=== PATIENT | female | born 1975 | race Two or more races ===

== ENCOUNTER 2024-08-22 12:29 | Emergency (ER) | payer OTHER ==
[~2024-08-22] VITALS: Ht 172.7 cm; Wt 66.2 kg
[2024-08-22] MEDS ORDERED: 0.9 % SODIUM CHLORIDE 1,000 ML IV STA ×3 (12:59→17:55)
[2024-08-22] MEDS ORDERED: ONDANSETRON HCL 2 MG/ML VIAL IV ONE (13:00)
[2024-08-22] MEDS ORDERED: MORPHINE SULFATE 4 MG/ML VIAL IV ONE ×2 (13:00→16:30)
[2024-08-22 13:46] LABS: HEMATOCRIT 39.8 % (36.0-45.00); MEAN CORPUSCULAR HEMOGLOBIN 26.4 pg (27.00-32.0); MEAN CORPUSCULAR HGB CONC 32.6 g/dl (32.0-36.0); PLATELET COUNT 262 K/uL (150-450); RED BLOOD COUNT 4.91 M/uL (4.00-6.00); RED CELL DISTRIBUTION WIDTH 14.1 % (11.5-14.5)
[2024-08-22 13:53] LABS: INR 0.96; PARTIAL THROMBOPLASTIN TIME 25.5 SECONDS (22.0-34.0); PROTHROMBIN TIME 10.5 SECONDS (9.0-11.5)
[2024-08-22 13:59] LABS: ALBUMIN 3.7 gm/dL (3.4-5.0); BILIRUBIN TOTAL 0.35 mg/dL (0.3-1.2); CALCIUM 9.2 mg/dL (8.5-10.1); CREATININE SERUM 0.68 mg/dL (0.55-1.02); GFR 92.74; GLOBULINA 3.4 G/DL (2.4-3.5); POTASSIUM 3.71 mEq/L (3.5-5.1); TOTAL PROTEIN 7.1 gm/dL (6.4-8.2)
[2024-08-22] MEDS ORDERED: KETOROLAC TROMETHAMINE 30 MG VIAL IV ONE (14:00)
[2024-08-22] MEDS ORDERED: FAMOTIDINE/PF 20 MG/2 ML VIAL IV PUSH ONE (14:00)
[2024-08-22] MEDS ORDERED: TAMSULOSIN HCL 0.4 MG CAP PO ONE (14:00)
[2024-08-22] MEDS ORDERED: PROMETHAZINE HCL 25 MG/ML AMPUL IM ONE (18:00)
[2024-08-22] MEDS ORDERED: MEPERIDINE HCL/PF 50 MG/ML VIAL IM ONE (18:00)
[2024-08-22 18:06] LABS: PH,URINE 5.5 (5.0-8.0); URINE APPEARANCE Clear; URINE BILIRRUBIN Negative (NEGATIVE); URINE BLOOD Negative; URINE COLOR Yellow; URINE GLUCOSE Negative (NEGATIVE); URINE LEUKOCYTE Negative; URINE NITRATE Negative; URINE PROTEIN Negative (NEGATIVE); URINE UROBILINOGEN 0.2 E.U./dl
[2024-08-22 18:10] LABS: URINE BACTERIA 3656.4 uL (0.0-1933); URINE RBC 22.1 uL (0.0-20.8); URINE WBC 132.8 uL (0.0-23.2)
[2024-08-22 18:26] LABS: URINE KETONE 40 (NEGATIVE); URINE MUCUS SCANT
== END 2024-08-22 19:28 | disposition home or self-care (01) ==
LOC: ER 12:30
PROVIDERS: Emergency Medicine
DX: N13.2 Hydronephrosis with renal and ureteral calculous obstruction (principal); N28.1 Cyst of kidney, acquired; N83.202 Unspecified ovarian cyst, left side; Z91.013 Allergy to seafood